=== PATIENT | female | born 1950 | race Caucasian/White ===

== ENCOUNTER 2023-10-25 18:40 | Emergency (ER) | payer MEDICARE ==
[~2023-10-25 18:40] MED LIST: Ketorolac 30 MG/ML VIAL IM ONE
== END 2023-10-25 20:45 | disposition home or self-care (01) ==
LOC: ED 18:40
DX: S52.122A Displaced fracture of head of left radius, initial encounter for closed fracture (principal); W19.XXXA Unspecified fall, initial encounter; Y92.009 Unspecified place in unspecified non-institutional (private) residence as the place of occurrence of the external cause
CPT/HCPCS: J1885

== ENCOUNTER 2024-02-09 21:56 | Emergency (ER) | payer MEDICARE ==
[~2024-02-09] VITALS: Ht 170.2 cm; Wt 81.8 kg
[2024-02-09] MEDS ORDERED: methylPREDNISolone Sod Succ 125 MG/2 ML VIAL IM ONE (22:30)
[2024-02-09] MEDS ORDERED: PREDNISONE20 MG PO (22:39)
[2024-02-09 23:34] VITALS: BP 133/72
== END 2024-02-09 23:36 | disposition home or self-care (01) ==
LOC: ED 21:56
DX: L25.9 Unspecified contact dermatitis, unspecified cause (principal)
CPT/HCPCS: J2919